=== PATIENT | female | born 1995 | race Two or more races ===

== ENCOUNTER 2016-12-03 21:11 | Emergency (ER) | payer MEDICAID ==
[2016-12-03 21:28] VITALS: BP 114/78
--- NOTE | 2016-12-05 13:29 | CR ---
INDICATION: Left ankle injury, fell with a twist. LEFT ANKLE: Three views of the left ankle were obtained and revealed no evidence of a fracture, dislocation, or other significant bone or joint abnormality. ARABELLA
--- NOTE | 2016-12-06 09:31 | ER ---
DATE SEEN: 12/03/2016 HISTORY OF PRESENT ILLNESS: She was at a friend's, stepped off the curb wrong and twisted her ankle and has pain. She states that she is able to bear weight, but is painful to do so, most of the pain is in the lateral aspect. She did not have previous injury to this area before. Minimal swelling. She has not taken anything for pain. MEDICATIONS: 1. Cymbalta. 2. Flexeril. 3. Lyrica. 4. Elavil. ALLERGIES: No known drug allergies. PAST MEDICAL HISTORY: UTI, malingering, panic attacks, and dehydration. REVIEW OF SYSTEMS: No nausea, vomiting, fever, or chills. PHYSICAL EXAMINATION: VITAL SIGNS: She is afebrile. Temperature 36.6, pulse 87, blood pressure 114/70, saturation 99% on room air. GENERAL: She is in no apparent acute distress. EXTREMITIES: Left ankle has full range of motion. She has mild tenderness to anterior talofibular ligament. No tenderness at Achilles or gastroc in the foot and fifth metatarsal and both nontender. No ecchymosis. LABORATORY DATA: X-ray of her left ankle is negative for fracture. ASSESSMENT: Grade 1 ankle sprain. PLAN: Rest, ice, elevation, and compression. Tylenol as needed for pain. /[id number] PAO/SHANE
== END 2016-12-03 22:10 | disposition home or self-care (01) ==
LOC: FB.ED 21:11
DX: S93.402A Sprain of unspecified ligament of left ankle, initial encounter (principal); X50.1XXA Overexertion from prolonged static or awkward postures, initial encounter
CPT/HCPCS: 73610-LT; 99283

== ENCOUNTER 2017-05-02 13:14 | Emergency (ER) | payer MEDICAID, OTHER ==
[2017-05-02] MEDS ORDERED: Sodium Chloride 0.9% 1,000 ML IV SCH (13:30)
--- NOTE | 2017-05-02 13:32 | EDM.PDOC ---
ED HPI GENERAL MEDICAL PROBLEM - General Chief Complaint: Neurological Problem Stated Complaint: UNRESPONSIVE Time Seen by Provider: 05/02/17 13:15 Source of Information: Reports: EMS, Family, Old Records History Limitations: Reports: No Limitations - History of Present Illness INITIAL COMMENTS - FREE TEXT/NARRATIVE: 21 yo female here via EMS after she was found unresponsive by her in their home. He saw her last about 0730h today and she was acting normally. No pills or significant amount of alcohol was unaccounted for by him. There was no sign of foul play. EMS transported with stable vitals. She responded to pain appropriately. No hx of sucidial ideation or attempts. Has a pHx of malingering as documented in a prior ER visit. Onset: Today Onset Date: 05/02/17 Duration: Other (Unsure) Location: Reports: Generalized Quality: Reports: Other (unknown) Severity: Severe Improves with: Reports: None Worsens with: Reports: None Context: Reports: Other (unknown) Associated Symptoms: Reports: No Other Symptoms Treatments LEAD BUSINESS ANALYST: Reports: Other (see below) (none) - Related Data Allergies Allergy/AdvReac Type Severity Reaction Status Date / Time No Known Allergies Allergy Verified 05/02/17 14:07 Home Meds: Home Meds Cyclobenzaprine [Flexeril] 20 mg PO BEDTIME 03/26/15 [History] Pregabalin [Lyrica] 150 mg PO DAILY 03/26/15 [History] ClonazePAM [KlonoPIN] 1 mg PO DAILY 12/03/16 [History] Propranolol [Inderal] 20 mg PO DAILY 12/03/16 [History] busPIRone [Buspar] 30 mg PO DAILY 12/03/16 [History] lamoTRIgine 200 mg PO BEDTIME 12/03/16 [History] ClonazePAM [KlonoPIN] 1 mg PO ASDIRECTED 05/02/17 [History] DULoxetine [Cymbalta] 120 mg PO DAILY 05/02/17 [History] Hydroxychloroquine [Plaquenil] 200 mg PO MOWEFR 05/02/17 [History] Hydroxychloroquine [Plaquenil] 400 mg PO SUTUTHSA 05/02/17 [History] Meloxicam 15 mg PO DAILY 05/02/17 [History] Mirtazapine 15 mg PO BEDTIME 05/02/17 [History] Norgestrel-Ethinyl Estradiol [Til-Zxbuacev-11 Tablet] 1 tab PO DAILY 05/02/17 [ History] Past Medical History Psychiatric History: Reports: Depression, Panic Attack Social & Family History - Family History Family Medical History: Noncontributory - Tobacco Use Smoking Status *Q: Never Smoker - Caffeine Use Caffeine Use: Reports: Coffee - Alcohol Use Days Per Week of Alcohol Use: 0 - Recreational Drug Use Recreational Drug Use: No - Living Situation & Occupation Living situation: Reports: Single, with Significant Other Occupation: Employed ED ROS GENERAL - Review of Systems Review Of Systems: Unable To Obtain (Due to decreased LOC, said she has been well lately to his knowledge) - Physical Exam Exam: See Below Exam Limited By: No Limitations General Appearance: No Apparent Distress, Obtunded Eye Exam: Bilateral Eye: Normal Inspection, PERRL Ears: Normal External Exam, Normal Canal, Normal TMs Nose: Normal Inspection, Normal Mucosa, No Blood Throat/Mouth: Normal Inspection, Normal Lips, Normal Teeth, Normal Oropharynx, No Airway Compromise Head Exam: Atraumatic, Normocephalic Neck: Normal Inspection, Supple Respiratory/Chest: No Respiratory Distress, Lungs Clear, Normal Breath Sounds, No Accessory Muscle Use Cardiovascular: Regular Rate, Rhythm, No Edema GI/Abdominal: Normal Bowel Sounds, Soft, Non-Tender, No Distention Neuro Exam (Abbreviated): Unresponsive Back Exam: Normal Inspection Extremities: Normal Inspection, Normal Range of Motion, Non-Tender, No Pedal Edema Skin Exam: Warm, Dry, Intact, Normal Color, No Rash Course - Vital Signs Last Recorded V/S: Last Vital Signs Temp 36.2 C 05/02/17 13:15 Pulse 94 05/02/17 13:15 Resp 18 05/02/17 14:30 BP 135/81 05/02/17 14:30 Pulse Ox 99 05/02/17 14:30 - Orders/Labs/Meds Orders: Active Orders 24 hr Category Date Time Status Cardiac Monitoring [RC] .As Directed Care 05/02/17 13:20 Active Brannon Catheter Insertion [Insert Urinary Catheter] [OM. Care 05/02/17 13:30 Ordered PC] Q24H Urinary Catheter Assessment [RC] QSHIFT Care 05/02/17 13:18 Active Sodium Chloride 0.9% [Normal Saline] 1,000 ml Med 05/02/17 13:30 Active IV ASDIRECTED Medication Orders Sodium Chloride (Normal Saline) 1,000 mls @ 150 mls/hr IV ASDIRECTED JULIA Last Admin: 05/02/17 13:45 Dose: 150 mls/hr Labs: Laboratory Tests 05/02/17 05/02/17 05/02/17 Range/Units 13:33 13:33 13:33 WBC (4.5-12.0) X10-3/uL RBC (3.23-5.20) x10(6)uL Hgb (11.5-15.5) g/dL Hct (30.0-51.3) % MCV (80-96) fL MCH (27.7-33.6) pg MCHC (32.2-35.4) g/dL RDW (11.5-15.5) % Plt Count (125-369) X10(3)uL Sodium (135-145) mmol/L Potassium (3.5-5.3) mmol/L Chloride (100-110) mmol/L Carbon Dioxide (23-29) mmol/L BUN (5-20) mg/dL Creatinine (0.6-1.3) mg/dL Est Cr Clr Drug Dosing mL/min Estimated GFR (MDRD) (>60) BUN/Creatinine Ratio (9-20) Glucose (80-116) mg/dL Calcium (8.6-10.2) mg/dL Total Bilirubin (0.1-1.3) mg/dL AST (5-27) IU/L ALT (14-26) IU/L Alkaline Phosphatase (56-112) IU/L Total Protein (6.0-8.0) g/dL Albumin (3.5-5.2) g/dL Globulin g/dL Albumin/Globulin Ratio Urine Color Yellow (YELLOW) Urine Appearance Clear (CLEAR) Urine pH 6.0 (5.0-6.5) Ur Specific [place] 1.020 (1.010-1.025) Urine Protein Negative (NEGATIVE) mg/dL Urine Glucose (UA) Normal (NEGATIVE) mg/dL Urine Ketones Negative (NEGATIVE) mg/dL Urine Occult Blood Negative (NEGATIVE) Urine Nitrite Negative (NEGATIVE) Urine Bilirubin Negative (NEGATIVE) Urine Urobilinogen Normal (NEGATIVE) mg/dL Ur Leukocyte Esterase Negative (NEGATIVE) Urine WBC 0-5 (0) Ur Squamous Epith Cells Few H (NS,R,O) Urine Bacteria Few H (NS) Urine HCG, Qual Negative (NEGATIVE) Urine Opiates Screen Negative (NEGATIVE) Ur Oxycodone Screen Negative (NEGATIVE) Ur Propoxyphene Screen Negative (NEGATIVE) Acetaminophen (10-30) ug/mL Ur Barbituates Screen Negative (NEGATIVE) Ur Tricyclics Screen Positive H (NEGATIVE) Ur Phencyclidine Scrn Negative (NEGATIVE) Ur Amphetamine Screen Negative (NEGATIVE) Urine MDMA Screen Negative (NEGATIVE) U Benzodiazepines Scrn Negative (NEGATIVE) U Cocaine Metab Screen Negative (NEGATIVE) U Marijuana (THC) Screen Negative (NEGATIVE) Ethyl Alcohol (<0.01) % 05/02/17 05/02/17 05/02/17 Range/Units 14:23 14:23 14:23 WBC 7.3 (4.5-12.0) X10-3/uL RBC 4.35 (3.23-5.20) x10(6)uL Hgb 13.4 (11.5-15.5) g/dL Hct 40.1 (30.0-51.3) % MCV 92.2 (80-96) fL MCH 30.8 (27.7-33.6) pg MCHC 33.4 (32.2-35.4) g/dL RDW 13.3 (11.5-15.5) % Plt Count 367 (125-369) X10(3)uL Sodium 137 (135-145) mmol/L Potassium 3.7 (3.5-5.3) mmol/L Chloride 107 (100-110) mmol/L Carbon Dioxide 22 L (23-29) mmol/L BUN 14 (5-20) mg/dL Creatinine 0.7 (0.6-1.3) mg/dL Est Cr Clr Drug Dosing 118.01 mL/min Estimated GFR (MDRD) > 60 (>60) BUN/Creatinine Ratio 20.0 (9-20) Glucose 84 (80-116) mg/dL Calcium 8.6 (8.6-10.2) mg/dL Total Bilirubin 0.6 (0.1-1.3) mg/dL AST 17 D (5-27) IU/L ALT 17 D (14-26) IU/L Alkaline Phosphatase 58 (56-112) IU/L Total Protein 6.6 (6.0-8.0) g/dL Albumin 3.7 (3.5-5.2) g/dL Globulin 2.9 g/dL Albumin/Globulin Ratio 1.3 Urine Color (YELLOW) Urine Appearance (CLEAR) Urine pH (5.0-6.5) Ur Specific [place] (1.010-1.025) Urine Protein (NEGATIVE) mg/dL Urine Glucose (UA) (NEGATIVE) mg/dL Urine Ketones (NEGATIVE) mg/dL Urine Occult Blood (NEGATIVE) Urine Nitrite (NEGATIVE) Urine Bilirubin (NEGATIVE) Urine Urobilinogen (NEGATIVE) mg/dL Ur Leukocyte Esterase (NEGATIVE) Urine WBC (0) Ur Squamous Epith Cells (NS,R,O) Urine Bacteria (NS) Urine HCG, Qual (NEGATIVE) Urine Opiates Screen (NEGATIVE) Ur Oxycodone Screen (NEGATIVE) Ur Propoxyphene Screen (NEGATIVE) Acetaminophen < 10 L (10-30) ug/mL Ur Barbituates Screen (NEGATIVE) Ur Tricyclics Screen (NEGATIVE) Ur Phencyclidine Scrn (NEGATIVE) Ur Amphetamine Screen (NEGATIVE) Urine MDMA Screen (NEGATIVE) U Benzodiazepines Scrn (NEGATIVE) U Cocaine Metab Screen (NEGATIVE) U Marijuana (THC) Screen (NEGATIVE) Ethyl Alcohol < 0.01 (<0.01) % Meds: Medications Generic Name Dose Route Start Last Admin Trade Name Freq PRN Reason Stop Dose Admin Sodium Chloride 1,000 mls @ 150 mls/hr 05/02/17 13:30 05/02/17 13:45 Normal Saline IV 150 mls/hr ASDIRECTED JULIA Administration Departure - Departure Time of Disposition: 15:00 Disposition: Home, Self-Care 01 Condition: Good Clinical Impression: Malingering, Altered level of consciousness - Discharge Information Referrals: Danny Leigh MD [Primary Care Provider] - Forms: ED Department Discharge - My Orders Last 24 Hours: My Active Orders 05/02/17 13:18 Urinary Catheter Assessment [RC] QSHIFT 05/02/17 13:20 Cardiac Monitoring [RC] .As Directed 05/02/17 13:30 Brannon Catheter Insertion [Insert Urinary Catheter] [OM.PC] Q24H Sodium Chloride 0.9% [Normal Saline] 1,000 ml IV ASDIRECTED - Assessment/Plan Last 24 Hours: My Active Orders 05/02/17 13:18 Urinary Catheter Assessment [RC] QSHIFT 05/02/17 13:20 Cardiac Monitoring [RC] .As Directed 05/02/17 13:30 Brannon Catheter Insertion [Insert Urinary Catheter] [OM.PC] Q24H Sodium Chloride 0.9% [Normal Saline] 1,000 ml IV ASDIRECTED
[2017-05-02 14:57] LABS: ACETAMINOPHEN < 10 ug/mL (10-30)
[2017-05-02 20:40] VITALS: BP 125/78
== END 2017-05-02 17:48 | disposition home or self-care (01) ==
LOC: FB.ED 13:14
DX: R40.4 Transient alteration of awareness (principal); Z76.5 Malingerer [conscious simulation]; F32.9 Major depressive disorder, single episode, unspecified; Z79.899 Other long term (current) drug therapy
CPT/HCPCS: 36415; 51702; 80053; 80305; 81001; 81025; 85027; 96360; 96361; 99285; G0480; J7040